=== PATIENT | female | born 1995 | race Caucasian/White ===

== ENCOUNTER 2018-01-22 09:57 | Emergency (ER) | payer OTHER, MEDICAID ==
[~2018-01-22] VITALS: Ht 152.4 cm; Wt 113.4 kg
[~2018-01-22 09:57] MED LIST: ZANTAC 7575 MG PO; ZYRTEC 10 MG TA10 M1 PO
[2018-01-22 10:10] VITALS: BP 130/70
[2018-01-22] MEDS ORDERED: PRENATAL PO (10:12)
[2018-01-22] MEDS ORDERED: VENTOLIN HFA 1818 GM INH (10:13)
[2018-01-22] MEDS ORDERED: PHENERGAN 25 MG25 M1 PO (10:13)
[2018-01-22] MEDS ORDERED: AMOXICILLIN 50500 MG PO (10:27)
== END 2018-01-22 10:34 | disposition home or self-care (01) ==
LOC: M.ERS 09:57
DX: H66.93 Otitis media, unspecified, bilateral (principal); J45.909 Unspecified asthma, uncomplicated; F41.9 Anxiety disorder, unspecified; F32.9 Major depressive disorder, single episode, unspecified; F20.9 Schizophrenia, unspecified; G47.30 Sleep apnea, unspecified; Z88.2 Allergy status to sulfonamides; Z88.8 Allergy status to other drugs, medicaments and biological substances